=== PATIENT | male | born 1960 | race Caucasian/White ===

== ENCOUNTER 2019-02-06 13:57 | Observation (INO) ==
[2019-02-06] MEDS ORDERED: Naloxone 0.4 MG/ML INJ IVP PRN (16:30)
--- NOTE | 2019-02-06 16:30 | Internal Med History&Physical ---
Date of Encounter: 02/06/19 Time of Encounter: 16:27 Internal Medicine - H&P: HPI Chief complaint: shortness of breath Admitted From: Hospital to Hospital Transfer Plans for Post Hospital Care: Home History of present illness: Mr. Cotto is a 58 year old male past medical history of COPD who continues to smoke, anxiety and depression was transferred here from [facility] for further management with bronchoscopy. Patient has multiple episode of COPD exacerbation for the past 5 months about 3 admissions. He had increased cough and productive sputum for the past 3 days. Denied any fevers chills nausea vomiting or diarrhea. Recently finished a course of Levaquin about 2 weeks ago. Denies any chest pain. Uses oxygen at home with ambulation. Patient was evaluated [facility] found to have COPD exacerbation was given 20 mg prednisone as he has allergies to Solu-Medrol and that he develops tachycardia from 8. He was told that he needed bronchoscopy on previous discussion with pulmonology if he has more COPD exacerbation this year. This was discussed with pulmonology and he was transferred here for bronchoscopy. Patient was given 20 more milligrams of prednisone. Patient was seen on the floor when he was told that he was sent here by surprise and that he is feeling very anxious because of his anxiety and agoraphobia and because this was somewhat unexpected. Denied any abdominal pain. He felt that he needs to take his home medication at the exact time that he takes at home otherwise he feels very anxious and request he gets his medicine as he takes at home. He requests something to help him to replace his smoking for his nicotine. Patient had lab workup done which was essentially unremarkable except mild hyponatremia. Chest x-ray was unremarkable. Past Med Surg Social Fam HX - Past Medical History Medical history: COPD, hypertension Additional medical history: emphysema Psychiatric history: anxiety, depression, other - Past Surgical History Additional surgical history: Dental surgery - Social History Smoking Status: Current every day smoker Packs per day: 0.25 Smokeless Tobacco Status: No Alcohol use: none Drug use: none - Family History Mother Hx Family Cancer: Yes Hx Family Neuromuscular Disorders: Yes Father History Unknown: Yes Internal Medicine - H&P: Meds ALPRAZolam [Xanax 1 MG Tablet] 1 mg PO QID PRN 10/30/16 [History] Albuterol Sulfate [Ventolin Hfa] 18 gm IH Q4H 10/30/16 [History] Ipratropium/Albuterol Neb [Duoneb] 3 ml IH Q6HR 10/30/16 [History] Propranolol [Inderal] 10 mg PO DAILY 10/30/16 [History] diazePAM [Valium] 10 mg PO HS 10/30/16 [History] Budesonide/Formoterol 160/4.5 [Symbicort 160/4.5] 2 puff IH BIDR 02/06/19 [History] Oxycodone HCl/Acetaminophen [Endocet 5-325 Tablet] 1 each PO Q6H PRN 02/06/19 [History] Allergy/AdvReac Type Severity Reaction Status Date / Time Penicillins Allergy See Verified 10/30/16 19:53 Comments Antihistamines - Ethanolamine AdvReac See Verified 10/30/16 19:53 Comments Histamine H2 Inhibitors AdvReac See Verified 10/30/16 19:54 Comments methylprednisolone AdvReac Palpitation Verified 02/06/19 14:34 [From Solu-Medrol] s All Systems PM: A 10-system review of systems was performed and is negative for pertinent findings except as documented above in the HPI. - Constitutional Exam: Constitutional: Vitals as noted. Conversant. No Apparent Distress. Eyes : Sclera white, conjunctiva clear, no lid lag, PEARLA. ENT : Grossly normal hearing. Oropharyngeal exam unremarkable. Moist mucus membranes. No JVD, no cervical lymphadenopathy. no thyromegaly or mass. Respiratory : Decreased air entry. No accessory muscle use, wheezing on lt lower lung zheng Cardiovascular : RRR, +S1, +S2. no murmur, gallop, rubs. No chest wall tenderness GI/Abdominal : Soft, Non-tender, Non-distended, normal bowel sounds, no peritoneal signs. no orgenomegaly or mass appreciated. no hernia. Musculoskeletal: no deformity noted. no edema or cyanosis. warm extremities, pulses palpable and symmetrical in UE/LE. no calf tenderness. Neurological: AO X3, CN II-XII grossly intact, grossly normal motor and sensory exam. Skin: No lesions noted Pych: Very anxious Internal Med - H&P Results - EKG Data -: EKG Interpreted by Myself - Assessment and Plan (1) Acute and chronic respiratory failure with hypoxia Current Visit: Yes Status: Acute Assessment and plan: Likely due to COPD exacerbation. Keep patient on supplemental oxygen and bronchodilators and 40 mg of steroids. We will obtain pro-calcitonin levels and if elevated we will prescribe antibiotics. (2) HTN (hypertension) Current Visit: Yes Status: Acute Assessment and plan: Appears to be stable. Continue home propranolol. Qualifiers: Hypertension type: essential hypertension Qualified Code(s): I10 - Essential (primary) hypertension (3) Anxiety and depression Current Visit: Yes Status: Acute Assessment and plan: Continue home benzodiazepines Patient extremely anxious and wants his home medication exactly the way he takes at home. We will try to accommodate his schedule for medications. (4) Acute exacerbation of chronic obstructive airways disease Current Visit: No Status: Acute Assessment and plan: Patient with recurrent COPD exacerbation. Continue management as above Plan for patient to have bronchoscopy tomorrow. Nothing by mouth after midnight. Pulmonology consulted (5) Tobacco abuse Current Visit: Yes Status: Acute Assessment and plan: Patient continues to smoke Consulate extensively about smoking cessation given his COPD exacerbation multiple hospitalization. We will keep patient on nicotine patch for now. - Time Spent With Patient Total time spent is greater than 50% in coordination of care (as documented) at patient's floor/unit and/or counseling patient:
[2019-02-06 16:53] VITALS: BP 124/84
[2019-02-06] MEDS ORDERED: *HR* OxyCODONE/APAP 5/325 TABLET PO PRN (18:02)
[2019-02-06] MEDS ORDERED: ALPRAZolam 1 MG TABLET PO PRN (18:02)
[2019-02-06] MEDS ORDERED: Ipratropium/Albuterol Neb 3 ML IH PRN (18:04)
--- NOTE | 2019-02-06 18:09 | Pulmonology Consult Note ---
Date of Encounter: 02/06/19 Time of Encounter: 16:00 Assessment and Plan (1) Acute and chronic respiratory failure with hypoxia Status: Acute Usually on oxygen during exertion only patient requiring oxygen at rest to liberate oxygen as soon as possible. Patient presently with recurrent COPD exacerbation at least 2-3 ER visits in a 3 months. (2) Acute exacerbation of chronic obstructive airways disease Status: Acute Patient presenting with progressive shortness of breath and increased cough and sputum production will treat as a COPD exacerbation start him on steroids schedule bronchodilators will send calcitonin will start on antibiotics on that . Since patient has recurrent COPD exacerbation I offered a bronchoscopy risk and benefit was explained. Claimed that he should be nothing by mouth after midnight patient has severe anxiety complement has on and benzodiazepine will need bronchoscopy with the most likely general anesthesia because it difficult sedation. (3) Anxiety and depression Status: Acute Requested admitted hospitalist to start him on his home anxiety medication (4) Tobacco abuse Status: Acute Counseled about the importance of tobacco abuse long-term management of her COPD symptoms. History of Present Illness Consult date: 02/06/19 Requesting physician: Rea Moyer Reason for consult: COPD Chief complaint: Worsening shortness of breadth History of present illness: 58-year-old male with past medical history significant for chronic smoking, COPD with recurrent COPD exacerbation gets recurrent prednisone therapy as an outpatient patient also has multiple comorbid anxiety disorder patient comes with 3 days of shortness of breath not much chest pain chest tightness increased cough and sputum production denies any fever or chills denies any pedal edema denies any active GERD or neuro symptoms patient denies any headache or any other focal neurological deficit. Patient is admitted for recurrent COPD exacerbation patient usually goes to [facility] usually gets admitted the and getting evaluated there I instructed the last time to come to [facility] if he gets his next step COPD exacerbation. Past Med Surg Social Fam HX - Past Medical History Medical history: COPD, hypertension Additional medical history: emphysema Psychiatric history: anxiety, depression, other - Past Surgical History Additional surgical history: Dental surgery - Social History Smoking Status: Current every day smoker Packs per day: 0.25 Smokeless Tobacco Status: No Alcohol use: none Drug use: none - Family History Mother Hx Family Cancer: Yes Hx Family Neuromuscular Disorders: Yes Father History Unknown: Yes Medications and Allergies ALPRAZolam [Xanax 1 MG Tablet] 1 mg PO QID PRN 10/30/16 [History] Albuterol Sulfate [Ventolin Hfa] 18 gm IH Q4H 10/30/16 [History] Ipratropium/Albuterol Neb [Duoneb] 3 ml IH Q6HR 10/30/16 [History] Propranolol [Inderal] 10 mg PO DAILY 10/30/16 [History] diazePAM [Valium] 10 mg PO HS 10/30/16 [History] Budesonide/Formoterol 160/4.5 [Symbicort 160/4.5] 2 puff IH BIDR 02/06/19 [History] Oxycodone HCl/Acetaminophen [Endocet 5-325 Tablet] 1 each PO Q6H PRN 02/06/19 [H istory] Allergy/AdvReac Type Severity Reaction Status Date / Time Penicillins Allergy See Verified 10/30/16 19:53 Comments Antihistamines - Ethanolamine AdvReac See Verified 10/30/16 19:53 Comments Histamine H2 Inhibitors AdvReac See Verified 10/30/16 19:54 Comments methylprednisolone AdvReac Palpitation Verified 02/06/19 14:34 [From Solu-Medrol] s ROS unobtainable: due to endotracheal tube All Systems: The remainder of the systems were reviewed and are negative Physical Examination Vital Signs: Vital Signs, Last 4 Hours Temp Pulse Resp BP Pulse Ox 02/06/19 16:53 97.8 F 61 16 124/84 94 General appearance: no acute distress Eyes: nonicteric ENT: oropharynx moist Neck: supple Effort: mildly labored Auscultation: bilateral: diminished breath sounds Cardiovascular: regular rate and rhythm Gastrointestinal: normoactive bowel sounds Extremities: no cyanosis, no edema Musculoskeletal: no deformities normal mental status, non-focal exam anxious Results - Clinical Findings Intake & Output: Intake & Output 02/06/19 02/06/19 02/06/19 07:59 15:59 23:59 Weight 83.915 kg Consult Discharge Plan - Plan Referrals: NONE,PCP [Primary Care Provider] -
[2019-02-06] MEDS ORDERED: Nicotine 14 MG PATCH.TD24 TD SCH (19:00)
[2019-02-06] MEDS ORDERED: diazePAM 5 MG TABLET PO SCH (21:00)
[2019-02-06] MEDS ORDERED: Budesonide/Formoterol 160/4.5 1 PUFF INH IH SCH (22:00)
[2019-02-06] MEDS ORDERED: Ipratropium/Albuterol Neb 3 ML IH SCH (22:00)
[2019-02-07] MEDS ORDERED: Ipratropium/Albuterol Neb 3 ML IH SCH
[2019-02-07] MEDS ORDERED: predniSONE 20 MG TABLET PO SCH (09:00)
--- NOTE | 2019-02-20 12:14 | Discharge Summary ---
Date of Encounter: 02/20/19 Time of Encounter: 12:09 - Discharge Diagnosis (1) Acute and chronic respiratory failure with hypoxia Priority: Primary Status: Acute (2) HTN (hypertension) Priority: Secondary Status: Acute Qualifiers: Hypertension type: essential hypertension Qualified Code(s): I10 - Essential (primary) hypertension (3) Anxiety and depression Priority: Secondary Status: Acute (4) Acute exacerbation of chronic obstructive airways disease Priority: Primary Status: Inactive (5) Tobacco abuse Priority: Secondary Status: Acute Hospital course: Mr. Cotto is a 58 year old male with past medical history of COPD who continues to smoke, anxiety and depression was transferred here from [facility] for further management with bronchoscopy. Patient has multiple episode of COPD exacerbation for the past 5 months about 3 admissions. Transferred here for further management. Patient initially agreed to stay for bronchoscopy. Bronchoscopy was planned for the next day however because of his anxiety depression and agoraphobia he felt severe anxiety need decided later that day and he mentioned to the nurse that he normally can change his mind. Previously had extensive discussion for the need of bronchoscopy. He understood that he needed however still decided to leave A. - Time Spent with Patient Total time spent providing and/or coordinating discharge services: - Discharge Medications Prescriptions: No Action diazePAM [Valium] 10 mg PO HS Ipratropium/Albuterol Neb [Duoneb] 3 ml IH Q6HR Propranolol [Inderal] 10 mg PO DAILY ALPRAZolam [Xanax 1 MG Tablet] 1 mg PO QID PRN PRN Reason: Anxiety Albuterol Sulfate [Ventolin Hfa] 18 gm IH Q4H Budesonide/Formoterol 160/4.5 [Symbicort 160/4.5] 2 puff IH BIDR Oxycodone HCl/Acetaminophen [Endocet 5-325 Tablet] 1 each PO Q6H PRN PRN Reason: Pain Home Medications: ALPRAZolam [Xanax 1 MG Tablet] 1 mg PO QID PRN 10/30/16 [History] Albuterol Sulfate [Ventolin Hfa] 18 gm IH Q4H 10/30/16 [History] Ipratropium/Albuterol Neb [Duoneb] 3 ml IH Q6HR 10/30/16 [History] Propranolol [Inderal] 10 mg PO DAILY 10/30/16 [History] diazePAM [Valium] 10 mg PO HS 10/30/16 [History] Budesonide/Formoterol 160/4.5 [Symbicort 160/4.5] 2 puff IH BIDR 02/06/19 [History] Oxycodone HCl/Acetaminophen [Endocet 5-325 Tablet] 1 each PO Q6H PRN 02/06/19 [History] Allergies/Adverse Reactions: Allergy/AdvReac Type Severity Reaction Status Date / Time Penicillins Allergy See Verified 10/30/16 19:53 Comments Antihistamines - Ethanolamine AdvReac See Verified 10/30/16 19:53 Comments Histamine H2 Inhibitors AdvReac See Verified 10/30/16 19:54 Comments methylprednisolone AdvReac Palpitation Verified 02/06/19 14:34 [From [facility]] s Date of admission: 02/06/19 15:16 Primary care physician: PCP NONE Consults: 02/06/19 18:01 Consult to Pulmonology [CONS] Routine Consulting Provider: [facility] Reason for Consult: bronchoscopy Call Completed: Yes - Constitutional Vitals: Temp Pulse Resp BP Pulse Ox 97.8 F 61 16 124/84 94 02/06/19 16:53 02/06/19 16:53 02/06/19 16:53 02/06/19 16:53 02/06/19 16:53 Exam: na - Patient Status Disposition: Left Against Medical Advice - Discharge Instructions Follow Up With: NONE,PCP [Primary Care Provider] -
== END 2019-02-06 19:30 | disposition left against medical advice (07) ==
LOC: 3BNU
PROVIDERS: ADMIT Internal Medicine; ATTEND Internal Medicine